=== PATIENT | female | born 1935 | race Caucasian/White ===

== ENCOUNTER 2018-02-08 03:01 | Inpatient (IN) | payer MEDICARE, BC ==
[2018-02-08] MEDS ORDERED: Albuterol/Ipratropium 3.0-0.5 MG/3 ML Neb Soln NEB ONE (04:02)
[2018-02-08] MEDS ORDERED: traMADol 50 MG Tab PO ONE (04:06)
[2018-02-08] MEDS ORDERED: traMADol 50 MG Tab ONE (04:15)
[2018-02-08] MEDS ORDERED: Albuterol/Ipratropium 3.0-0.5 MG/3 ML Neb Soln ONE (04:15)
[2018-02-08] MEDS ORDERED: cefTRIAXone 1 GM in Sodium Chloride 0.9% 50 ML IV SCH (05:45)
[2018-02-08] MEDS ORDERED: Dextrose 5%-0.9% NaCl with KCl 1,000 ML ONE (05:53)
[2018-02-08] MEDS ORDERED: NS + KCl 20mEq/L 1,000 ML ONE (05:59)
[2018-02-08] MEDS ORDERED: NS + KCl 20mEq/L 1,000 ML IV SCH (06:05)
[2018-02-08] MEDS ORDERED: Enoxaparin 100 MG/1 ML Syringe SUBCUT SCH (06:05)
[2018-02-08] MEDS: Albuterol/Ipratropium 3.0-0.5 MG/3 ML Neb Soln NEB SCH ×3 (06:14→13:10)
[2018-02-08] MEDS ORDERED: Omeprazole 20 MG Cap.CR PO SCH (08:00)
[2018-02-08] MEDS ORDERED: Insulin Glargine,Human Rec. Analog 100 Units/ML 3 ML Pen SUBCUT SCH (08:00)
[2018-02-08] MEDS ORDERED: Non-Formulary Medication 1 Each (Amlodipine Besylate/Benazepril [Amlodipine-Benazepril 5-2 PO SCH (08:00)
[2018-02-08] MEDS ORDERED: Furosemide 40 MG/4 ML VIAL IVPUSH SCH (08:00)
[2018-02-08] MEDS ORDERED: Metoprolol Tartrate 50 MG Tab PO SCH (08:00)
[2018-02-08] MEDS ORDERED: Acetaminophen/HYDROcodone 325-10 MG Tab ONE (08:12)
[2018-02-08] MEDS ORDERED: Acetaminophen/HYDROcodone 325-10 MG Tab PO PRN (08:15)
--- NOTE | 2018-02-08 08:38 | ER ---
DATE OF SERVICE: 02/08/2018 HISTORY OF PRESENT ILLNESS: An 83-year-old lady who comes in with her by ambulance with complaints of shortness of breath, coughing, back pain, and leg pain with some numbness bilaterally. The back pain and leg pain are mostly chronic symptoms for her. The shortness of breath and coughing also were chronic, but seems to be getting worse lately. The patient states that she was started on Cipro 2 days ago for urinary tract infection and she has not been able to take her Aleve, and therefore, her aches and pains have gotten worse. The patient states that her cough is loose, but she has not been coughing up much in terms of phlegm. PAST MEDICAL HISTORY: Includes chronic back pain; history of pneumonia; diabetes, insulin- dependent; hypertension; obesity. OBJECTIVE: GENERAL APPEARANCE: The patient is awake and alert. No respiratory distress. VITAL SIGNS: Reviewed. Blood pressure 149/62. She is afebrile. Pulse is 93, respirations are 24, O2 sats are 93% on room air. HEENT: Oral mucous membranes are slightly dry. Tonsils not enlarged or injected. Pharynx not inflamed. NECK: Supple. LUNGS : Rhonchi throughout the lung [place]. Scattered wheezes. CARDIAC: Heart sounds distinct without murmurs. ABDOMEN: Soft, protuberant, nontender. SKIN: Warm and dry. LABORATORY DATA: CBC shows an elevated white count of 23,200. Neutrophils are also elevated at 85.9. Comprehensive metabolic panel shows a low potassium level of 3.1, BUN is 50, creatinine 1.47, GFR is 34, glucose is 213. BNP is 1194. D-dimer is 2840. DIAGNOSES: 1. Pneumonia. 2. Hypokalemia. 3. Congestive heart failure. 4. Elevated D-dimer. 5. Chronic back pain. 6. Chronic leg pain with some newer development recently. TREATMENT PLAN: We will admit the patient to the hospital. We will start her on IV antibiotics, giving her Rocephin plus Zithromax. She will be treated prophylactically with Lovenox short-term until we get a Doppler ultrasound of both legs, and I will also consult with x-ray about getting a chest CT. The patient tells me she cannot tolerate any kind of dye. She will be started on Lasix, normal saline with 20 mEq of potassium as well. CRS/MODL /[id number] [facility]
--- NOTE | 2018-02-08 09:43 | CR ---
DATE OF SERVICE: 02/08/2018 CLINICAL DATA: Cough - SOB. AP PORTABLE CHEST: Comparison is made to a prior exam dated 11/28/2016. There is a mass-like density in the left mid and upper lung. There is adjacent infiltrate and consolidation of the left upper lobe. The possibility of a malignancy with pneumonia should be considered. Chest CT is recommended. There is persistent eventration left hemidiaphragm. The heart size is at the upper limits of normal. The right lung is clear. The exam is otherwise unchanged from the prior. IMPRESSION: Abnormal exam. Chest CT is recommended. [id number] [facility]TD[facility]
[2018-02-08] MEDS ORDERED: Albuterol 8 GM Inhaler INH ONE (10:00)
[2018-02-08] MEDS ORDERED: Morphine 10 MG/ML Syringe ONE ×2 (10:02→15:09)
[2018-02-08] MEDS: Morphine 2 MG/ML Syringe IVPUSH PRN ×2 (10:06→15:20)
--- NOTE | 2018-02-08 12:44 | HP ---
This 83-year-old lady is being admitted for pneumonia, hypokalemia, exacerbation of CHF, and an elevated D-dimer. She was admitted through the emergency room. She came in with complaints of back pain with bilateral leg pain with some numbness and coughing and chest congestion. The patient was started on Cipro 2 days ago for a UTI. She states she has not been able to use her Aleve since then and her back pain seems to be worse. When in the emergency room, I did give her 50 mg of Ultram which helped her pain fairly significantly. Chest x-ray does show an infiltrate in the left upper lobe with fairly diffuse pulmonary congestion. LABS: Include a white count of 23,200. D-dimer is elevated at 2840. Potassium is 3.1. Kidney function reveals a BUN of 50, creatinine 1.47, GFR is 34. Blood sugar is currently 213 and the BNP is 1194. The patient will be started on IV Rocephin and Zithromax. I will also start her on Lovenox 1 mg/kg roughly subcu for b.i.d. until we get an ultrasound of both legs and will consult regarding a chest CT. She was given Lasix. A Colindres will be put in and she will be given normal saline with 20 mEq of potassium. The patient will be started on a clear liquid diet. She is to be bedrest. She can be up to sit in a chair with assistance p.r.n. We will continue most of the patient's home medications in addition to the antibiotics. Lasix and Lovenox that will be initiated here. CRS/MODL
[2018-02-08] MEDS: Albuterol 8 GM Inhaler INH SCH ×2 (13:07→13:08)
[2018-02-08] MEDS ORDERED: Ondansetron 4 MG/2 ML SDV ONE (15:09)
[2018-02-08] MEDS ORDERED: Ondansetron 4 MG/2 ML SDV IVPUSH ONE (15:21)
--- NOTE | 2018-02-08 15:39 | CT ---
DATE OF SERVICE: 02/08/18 CLINICAL DATA: Cough - Abnormal CXR. UNENHANCED CHEST CT: Multi slice acquisition through the chest without IV contrast was performed. There is a large mass within the left chest. It extends from the left hilum to the left chest wall laterally. It does encase the left upper lobe bronchus and constricts it. It also partially encases the left lower lobe bronchus. There is a 4.3 cm irregularly shaped hypodense region within this mass. There is dense consolidation of the left upper lobe. There is also a small left pleural effusion. There is a 3 mm pleural based nodule within the right lower lobe laterally. There is also a small subpleural nodule in the right upper lobe. The heart size is normal. There are coronary artery calcifications. No pericardial effusion. There is a moderately large hiatal hernia. There are nonspecific mediastinal nodes. There is a low density lesion of the left lobe of the thyroid. Thyroid ultrasound is recommended. IMPRESSION: Large mass left hemithorax that extends from the left hilum to the left chest wall laterally. It has irregularly shaped low density within it. It encases and constricts the left upper lobe bronchus. There is also dense consolidation of the left upper lobe and a small left pleural effusion. 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 Other findings as discussed above. [id number] [facility]
--- NOTE | 2018-02-08 15:44 | US ---
DATE OF SERVICE: 02/08/18 CLINICAL DATA: Bilateral Leg pain. Elevated D Dimer RIGHT LEG VENOUS DOPPLER: Negative for DVT. LEFT LEG VENOUS DOPPLER: Negative for DVT. [id number] [facility]
[2018-02-08] MEDS ORDERED: Insulin Detemir 100 Units/ML 3 ML Pen SUBCUT SCH (20:00)
--- NOTE | 2018-02-09 02:00 | DISCH ---
This patient was admitted last evening through the emergency room initially being treated for pneumonia. A chest CT was done today showing a large mass taking up most of the left upper lobe as well as the superior hilum with a central area that is probably necrotic in the left upper lobe. There is also a thyroid mass on the left side that measures 2.2 x 1.6 cm. The patient was started on Rocephin as well as Zithromax IV. She was given some fluids and Lasix during the night. She felt a little better today. Based on the CT findings, I did contact [facility] at [facility], and the patient was transferred there for further evaluation. She left by ground ambulance at approximately 0415 hours today. The patient's vital signs have been stable today. Other acute conditions include hypokalemia and CHF. CRS/MODL /[id number]
[2018-02-09] MEDS ORDERED: Benazepril 40 MG Tab PO SCH (08:00)
[2018-02-09] MEDS ORDERED: amLODIPine 5 MG Tab PO SCH (08:00)
== END 2018-02-08 16:15 | DRG 195 ==
LOC: LB.ED 03:01 → LB.MS 05:39
PROVIDERS: ADMIT Physician Assistant; ATTEND Physician Assistant
DX: J18.9 Pneumonia, unspecified organism (principal); R91.8 Other nonspecific abnormal finding of lung field; E07.9 Disorder of thyroid, unspecified; I11.0 Hypertensive heart disease with heart failure; I50.9 Heart failure, unspecified; M79.605 Pain in left leg; M79.604 Pain in right leg; M54.9 Dorsalgia, unspecified; G89.29 Other chronic pain; E11.9 Type 2 diabetes mellitus without complications; Z79.4 Long term (current) use of insulin; E66.9 Obesity, unspecified; R79.1 Abnormal coagulation profile; R06.02 Shortness of breath; R05 Cough; E87.6 Hypokalemia; Z68.37 Body mass index [BMI] 37.0-37.9, adult; Z91.041 Radiographic dye allergy status
CPT/HCPCS: 36415; 71045; 71250; 80053; 81001; 83880; 85025; 85379; 87070; 87086; 93970; 94640; A0425; A0429; A0888; A0888-GY; A9270-GY; J0456; J0696; J1650; J1940; J2270; J3480; J7030; J7050; J7620